=== PATIENT | male | born 1970 | race Caucasian/White ===

== ENCOUNTER 2018-11-23 21:54 | Inpatient (IN) | payer MEDICAID ==
[2018-11-23 22:54] LABS: MEAN CELL VOLUME 97.6 fl (80-99); MEAN CORPUSCULAR HEMOGLOBIN 33.5 pg (26.0-30.0); MEAN CORPUSCULAR HGB CONC 34.3 pg (28.0-36.0); PLATELET COUNT 108 Th/cmm (150-400); RED BLOOD COUNT 2.37 Mil/cmm (4.30-5.70); RED CELL DISTRIBUTION WIDTH 14.3 % (11.5-20.0)
[2018-11-23] MEDS ORDERED: Sodium Chloride 0.9% 500 ML IV ONE (22:58)
--- NOTE | 2018-11-23 22:59 | ED Physician Chart ---
ED Chief Complaint/HPI - Patient Information Date Seen:: 11/23/18 Time Seen:: 22:54 Chief Complaint:: abn labs History of Present Illness:: hypotension anemia cirrhosis Allergies:: Allergies Allergy/AdvReac Type Severity Reaction Status Date / Time acetaminophen [From Tylenol] Allergy Verified 10/15/18 17:05 hydrocodone Allergy Verified 10/15/18 17:05 Vitals:: Vital Signs - 8 hr 11/23/18 21:55 Temp 97.9 F HR 70 RR 18 BP 125/57 O2 Sat % 96 ED Review of Systems - Review of Systems General/Constitutional: No fever Head: No headache Eyes: No loss of vision ENT: No earache Neck: No neck pain Cardio Vascular: No chest pain Pulmonary: No SOB GI: No vomiting Musculoskeletal: No bone or joint pain Endocrine: No polyuria Psychiatric: No depression Hematopoietic: No bruising Allergic/Immuno: No urticaria Neurological: No syncope ED Past Medical History - Past Medical History Past Medical History: Other (liver cirhosis anemia esophageal varices ,liver failure,splenomegaly bed bound ) Family Medical History - Family Member Mother History Unknown: Yes ED Physical Exam - Physical Examination Other Gen/Cons comments:: pt alert bed bound demario move toes but unable to ambulate Head: Atraumatic Skin: Nl inspection ENMT: External ears, nose nl Respiratory: Nl effort/Exclusion Cardio Vascular: RRR GI: No tenderness/rebounding/guarding Neuro/Psych: Alert/oriented ED Septic Shock - . Is Septic Shock (SBP<90, OR Lactate>4 mmol\L) present?: No - <6hrs of presentation: Vital Signs: Vital Signs - 8 hr 11/23/18 21:55 Temp 97.9 F HR 70 RR 18 BP 125/57 O2 Sat % 96 ED Reassessment (Disposition) - Reassessment Reassessment:: anemia for transfusion - Aftercare/Follow up Instructions Aftercare/Follow-Up Instructions:: Counseled pt regarding lab results/diagnosis & need follow up - Patient Disposition Condition at Disposition:: Stable
[2018-11-23 23:11] LABS: HEMATOCRIT 23.2 % (41.0-60); WHITE BLOOD COUNT 3.1 Th/cmm (4.8-10.8)
[2018-11-23 23:43] LABS: ALB/GLOB RATIO 0.7 (1.0-1.8); ALBUMIN 2.6 gm/dL (4.2-5.5); ANION GAP 8.7 (7.0-16.0); BILIRUBIN,TOTAL 0.9 mg/dL (0.3-1.0); CALCIUM SERUM 8.4 mg/dL (8.6-10.3); CARBON DIOXIDE 27.8 mEq/L (21.0-31.0); CREATININE - SERUM 2.5 mg/dL (0.7-1.3); GFR AFRICAN-AMERICAN 35.6 ml/min (>90); GFR NON AFRICAN-AMERICAN 29.4 ml/min; POTASSIUM SERUM 4.5 mEq/L (3.5-5.1); TOTAL PROTEIN,SERUM 6.5 gm/dL (6.0-8.3)
[2018-11-24 00:13] LABS: NEUTROPHILS 66 % (40-80)
[2018-11-24 00:14] LABS: BAND NEUTROPHILE 0 % (0-10); EOSINOPHIL 1 % (0-5); LYMPHOCYTE 30 % (20-50); MONOCYTE 3 % (2-10); PLATELET MORPHOLOGY NORMAL (NORMAL); POIKILOCYTOSIS 1+
[2018-11-24 00:15] LABS: ANISOCYTOSIS 1+; PLATELET ESTIMATE DECREASED PLATELETS (NORMAL)
[2018-11-24] MEDS ORDERED: Sodium Chloride 0.9% 1,000 ML IV ONE ×2 (00:38→01:57)
[2018-11-24] MEDS ORDERED: Sodium Chloride 0.9% 500 ML IV ONE (00:38)
[2018-11-24] MEDS ORDERED: Albumin 25% 25gm/100mL 25 GM/100 ML BTL IV ONE ×4 (02:31→04:44)
[2018-11-24 04:47] LABS: MEAN CELL VOLUME 97.6 fl (80-99); MEAN CORPUSCULAR HEMOGLOBIN 33.8 pg (26.0-30.0); MEAN CORPUSCULAR HGB CONC 34.6 pg (28.0-36.0); PLATELET COUNT 84 Th/cmm (150-400); RED BLOOD COUNT 1.97 Mil/cmm (4.30-5.70)
[2018-11-24 05:18] LABS: ANION GAP 9.4 (7.0-16.0); CALCIUM SERUM 7.6 mg/dL (8.6-10.3); CARBON DIOXIDE 25.8 mEq/L (21.0-31.0); CREATININE - SERUM 2.4 mg/dL (0.7-1.3); GFR AFRICAN-AMERICAN 37.3 ml/min (>90); GFR NON AFRICAN-AMERICAN 30.9 ml/min; POTASSIUM SERUM 4.2 mEq/L (3.5-5.1)
[2018-11-24] MEDS: D5-0.45NS 1,000 ML IV SCH ×2 (05:29→18:39)
[2018-11-24] MEDS ORDERED: DOPamine 400 MG/250 ML BAG IV ONE ×2 (05:48→18:13)
[2018-11-24] MEDS: DOPamine 400 MG/250 ML BAG IV PRN ×2 (05:54→18:14)
[2018-11-24 06:00] LABS: WHITE BLOOD COUNT 2.6 Th/cmm (4.8-10.8)
[2018-11-24 06:01] LABS: HEMATOCRIT 19.3 % (41.0-60); HEMOGLOBIN 6.7 gm/dL (12-16)
[2018-11-24 06:11] LABS: EOSINOPHIL 4 % (0-5); LYMPHOCYTE 30 % (20-50); MONOCYTE 6 % (2-10); NEUTROPHILS 60 % (40-80)
[2018-11-24 12:19] LABS: HEMATOCRIT 24.7 % (41.0-60); HEMOGLOBIN 8.8 gm/dL (12-16)
== END 2018-11-24 22:40 | disposition short-term general hospital (02) | DRG 207 ==
LOC: ER 21:54 → ERII 11-24 09:12
PROVIDERS: ADMIT Internal Medicine; ATTEND Internal Medicine
PROC: 30233N1 Transfusion of Nonautologous Red Blood Cells into Peripheral Vein, Percutaneous Approach (ICD-10-PCS; principal; 2018-11-24)
DX: I95.9 Hypotension, unspecified (principal); R53.2 Functional quadriplegia; K74.60 Unspecified cirrhosis of liver; D64.9 Anemia, unspecified; R16.1 Splenomegaly, not elsewhere classified; Z88.5 Allergy status to narcotic agent; Z88.6 Allergy status to analgesic agent; Z74.01 Bed confinement status
CPT/HCPCS: 36415-UA; 80048-TC; 80053-TC; 83605; 85007-TC; 85014-TC; 85018-TC; 85025-TC; 86850-TC; 86900-TC; 86901-TC; 86922-TC; 96374; 96375; J1265; J7030; J7040; P9016; P9046; Z7610